=== PATIENT | female | born 1990 ===

== ENCOUNTER 2021-06-29 10:51 | Inpatient (IN) | payer OTHER ==
[2021-06-29] MEDS ORDERED: ELECTROLYTE-148 SOLN 1,000 ML IV SCH (13:15)
[2021-06-29 13:38] VITALS: BMI 28.0
[2021-06-29 14:24] LABS: BASO % 0.5 % (0-2.0); EOS % 0.6 % (0-4.5); HEMATOCRIT 34.1 % (32.4-45.2); HEMOGLOBIN 11.4 GM/dL (10.7-15.3); LYMPH % 20.6 % (8-40); MCH 27.6 pg (25.7-33.7); MCHC 33.3 g/dl (32.0-36.0); MEAN CELL VOLUME 82.9 fl (80-96); MEAN PLT VOLUME 9.1 fl (7.5-11.1); MONO % 6.4 % (3.8-10.2); NEUT % 71.9 % (42.8-82.8); PLATELET COUNT 221 10^3/uL (134-434); RBC 4.12 M/mm3 (3.60-5.2); RDW 14.3 % (11.6-15.6)
[2021-06-29 14:30] LABS: INR 0.93 (0.83-1.09); PROTHROMBIN TIME (PATIENT) 10.7 SEC (9.7-13.0)
[2021-06-29 14:33] LABS: ACTIVATED PTT 26.8 SECONDS (25.2-36.5)
[2021-06-29 14:45] LABS: CALCIUM 9.6 mg/dL (8.5-10.1)
[2021-06-29 14:46] LABS: BLOOD UREA NITROGEN 13.2 mg/dL (7-18)
[2021-06-29 14:49] LABS: CREATININE 0.7 mg/dL (0.55-1.3)
[2021-06-29 15:37] LABS: POC NITRAZINE NEG
[2021-06-29] MEDS ORDERED: PROMETHAZINE HCL 25 MG/1 ML VIAL IVPB ONE (18:48)
[2021-06-29] MEDS ORDERED: BUTORPHANOL TARTRATE 1 MG/ML VIAL IVPB ONE (18:48)
[2021-06-29] MEDS ORDERED: OXYTOCIN 30 UNITS in 0.9% NS 30 UNIT/500 ML INFUS.BAG IVPB SCH (19:00)
[2021-06-29] MEDS ORDERED: OXYTOCIN 30 UNITS in 0.9% NS 30 UNIT/500 ML INFUS.BAG IVPB ONE (20:08)
[2021-06-29] MEDS ORDERED: PROMETHAZINE HCL 25 MG/1 ML VIAL ONE (22:50)
[2021-06-29] MEDS ORDERED: BUTORPHANOL TARTRATE 1 MG/ML VIAL ONE (22:50)
[2021-06-30] MEDS ORDERED: BUPIVACAINE HCL/PF 0.25% (2.5MG/ML) 10 ML VIAL ONE (04:25)
[2021-06-30] MEDS ORDERED: FENTANYL/BUPIVACAINE/NS/PF - PCEA - 50 ML DISP.SYRIN EP ONE (04:44)
[2021-06-30] MEDS ORDERED: NALOXONE HCL 0.4 MG/ML VIAL IVPUSH PRN (04:55)
[2021-06-30] MEDS ORDERED: FENTANYL/BUPIVACAINE/NS/PF - PCEA - 50 ML DISP.SYRIN EP SCH (05:00)
[2021-06-30] MEDS ORDERED: OXYTOCIN 20 UNITS in 0.9% NS 20 UNIT/1,000 ML INFUS.BAG IV ONE (08:03)
[2021-06-30] MEDS ORDERED: METHYLERGONOVINE MALEATE 0.2 MG/1 ML AMP IM PRN (08:51)
[2021-06-30] MEDS ORDERED: WITCH HAZEL 50% (TUCKS) 40 PAD/JAR PAD TP PRN (08:51)
[2021-06-30] MEDS ORDERED: ACETAMINOPHEN 325 MG TABLET (FP) PO PRN (08:51)
[2021-06-30] MEDS ORDERED: oxyCODONE HCL 5 MG TABLET PO PRN (08:51)
[2021-06-30] MEDS ORDERED: BENZOCAINE 28 GM HEMORRHOIDAL OINTMENT TP PRN (08:51)
[2021-06-30] MEDS ORDERED: BENZOCAINE 20% 57 GM BOTTLE TP PRN (08:51)
[2021-06-30] MEDS ORDERED: BISACODYL 10 MG SUPP.RECT RC PRN (08:51)
[2021-06-30] MEDS ORDERED: OXYTOCIN 20 UNITS in 0.9% NS 20 UNIT/1,000 ML INFUS.BAG IV SCH (09:00)
[2021-06-30] MEDS: PRENATAL VITAMINS W/ FOLIC ACID TABLET (FP) PO SCH (13:06)
[2021-06-30] MEDS: IBUPROFEN 600 MG TABLET (FP) PO PRN (18:20)
[2021-07-01] MEDS: IBUPROFEN 600 MG TABLET (FP) PO PRN ×2 (00:07→09:11)
[2021-07-01 08:42] LABS: BASO % 0.4 % (0-2.0); HEMATOCRIT 30.1 % (32.4-45.2); HEMOGLOBIN 9.8 GM/dL (10.7-15.3); LYMPH % 24.1 % (8-40); MCH 27.3 pg (25.7-33.7); MCHC 32.7 g/dl (32.0-36.0); MEAN CELL VOLUME 83.7 fl (80-96); MEAN PLT VOLUME 9.3 fl (7.5-11.1); MONO % 6.3 % (3.8-10.2); NEUT % 68.2 % (42.8-82.8); PLATELET COUNT 167 10^3/uL (134-434); RDW 14.6 % (11.6-15.6)
[2021-07-01] MEDS: PRENATAL VITAMINS W/ FOLIC ACID TABLET (FP) PO SCH (09:11)
[2021-07-01] MEDS ORDERED: SENNOSIDES/DOCUSATE COMBO (SENNA PLUS) TABLET (UD) PO PRN (22:00)
[2021-07-02] MEDS: IBUPROFEN 600 MG TABLET (FP) PO PRN ×2 (01:24→09:25)
[2021-07-02 09:29] VITALS: BP 117/73; PULSE 90; TEMP 98.1
[2021-07-02] MEDS: PRENATAL VITAMINS W/ FOLIC ACID TABLET (FP) PO SCH (09:29)
== END 2021-07-02 11:45 | disposition home or self-care (01) | DRG 807 ==
LOC: JDEL 10:51 → JLDR 12:00 → J3W 06-30 10:40
PROVIDERS: ADMIT Obstetrics & Gynecology; ATTEND Obstetrics & Gynecology
PROC: 10E0XZZ Delivery of Products of Conception, External Approach (ICD-10-PCS; principal; 2021-06-30)
PROC: 0HQ9XZZ Repair Perineum Skin, External Approach (ICD-10-PCS; 2021-06-30)
DX: O48.0 Post-term pregnancy (principal); O70.0 First degree perineal laceration during delivery; Z3A.40 40 weeks gestation of pregnancy; Z37.0 Single live birth
CPT/HCPCS: 36415; 59025; 59409; 80048; 83986-QW; 85025; 85610; 85730; 86780; 86850; 86900; 86901; C9803-CS; U0003; U0005